=== PATIENT | male | born 1970 | race African-American/Black ===

== ENCOUNTER 2019-06-30 10:30 | Emergency (ER) | payer MEDICAID ==
[~2019-06-30] VITALS: Ht 190.5 cm; Wt 133.8 kg
[2019-06-30 10:45] VITALS: BP 143/85
--- NOTE | 2019-06-30 10:53 | NUR ---
ED Nurse Note: pt presents to ED with an abscess on his L ring finger. pt reports slamming his finger between two drawers 6 weeks ago but the abscess formed 5 days ago. pt reports yellow drainage coming from the wound. pt reports the pain 10/10 and has not taken anything [employer] for symptoms.
[2019-06-30 11:15] VITALS: BP 143/85
--- NOTE | 2019-06-30 11:15 | NUR ---
ER DISCHARGE NOTE: Patient is cleared to be discharged per ERMD, pt is aox4, on room air, with stable vital signs. pt was given dc and prescription instructions, pt was able to verbalize understanding, pt id band removed without complications. pt is able to ambulate with steady gait. pt took all belongings.
--- NOTE | 2019-06-30 13:35 | Emergency Room Report ---
History of Present Illness General Chief Complaint: Skin Rash/Abscess Source: Patient Present Illness HPI Patient presents with complaints of growth on the left fourth finger reports that previously there was an injury And there appears to be some increased swelling in that area however more recently he had another trauma and caused the swelling to become more significant he had talked to his Primary physician and was sent to the emergency room for further evaluation denies any fevers denies any New medication He feels that the area started several weeks ago after initial injury Allergies: Coded Allergies: No Known Allergies (Unverified , 06/30/19) Patient History Past Medical History: see triage record Reviewed Nursing Documentation: PMH: Agreed; PSxH: Agreed Nursing Documentation-PMH Past Medical History: No Stated History Review of Systems All Other Systems: negative except mentioned in HPI Physical Exam Vital Signs Date Time Temp Pulse Resp B/P (MAP) Pulse Ox O2 Delivery O2 Flow Rate FiO2 06/30/19 10:39 98.2 62 18 143/85 (104) 99 Room Air Sp02 EP Interpretation: reviewed, normal General Appearance: well appearing, no apparent distress Head: normocephalic, atraumatic Eyes: bilateral eye PERRL, bilateral eye EOMI ENT: hearing grossly normal Neck: supple Musculoskeletal: other - Growth noted distal tip of the left ring finger there appears to have been, an opening at the distal tip and there is a growth noted, potential hemangioma, questionable mass no active hemorrhage is noted Skin: other - As above Lymphatic: no adenopathy Medical Decision Making Diagnostic Impression: Primary Impression: Rash and other nonspecific skin eruption Additional Impression: possible hemangioma ER Course Given the exam and findings several differentials are considered, including but not limited to possible tumor, hemangioma, hematoma The area in question appears vascular I do not feel that this is an area that is appropriate for emergency intervention Patient is recommended to follow-up with hand specialty at this time there is no sign of acute hemorrhage And patient provided outpatient disposition Last Vital Signs Date Time Temp Pulse Resp B/P (MAP) Pulse Ox O2 Delivery O2 Flow Rate FiO2 06/30/19 11:15 98.2 18 143/85 99 Room Air 06/30/19 10:39 62 Status: improved Disposition: HOME, SELF-CARE Condition: Stable Scripts No Active Prescriptions or Reported Meds Referrals: NON PHYSICIAN (PCP) Miguel Angel Meredith MD Patient Instructions: Cavernous Malformation, Hematoma, [id number] Additional Instructions: The lesion on your finger requires a hand specialty consultation and intervention. 1 has been provided for you however it is recommended to discuss this with your primary physician for possible appropriate specialty referral as well Kamala Butts DO Jun 30, 2019 13:35
== END 2019-06-30 11:20 | disposition home or self-care (01) ==
LOC: EMR 11:00
DX: R21 Rash and other nonspecific skin eruption (principal)
CPT/HCPCS: 99281